=== PATIENT | female | born 1935 | race Caucasian/White ===

== ENCOUNTER 2018-08-09 14:47 | Emergency (ER) | payer MEDICARE, MEDICAID ==
[~2018-08-09] VITALS: Ht 163.8 cm; Wt 79.6 kg
[~2018-08-09 14:47] MED LIST: LEVO175T2 PO; LISI10TA4 PO
[2018-08-09 19:04] LABS: BASOPHILS % (AUTO) 0.3 % (0-1); EOSINOPHILS # (AUTO) 0.1 X10'3 (0-0.9); EOSINOPHILS % (AUTO) 1.5 % (0-6); HEMATOCRIT 38.2 % (35.0-45.0); HEMOGLOBIN 12.7 g/dl (12.0-16.0); LYMPHOCYTES # (AUTO) 3.4 X10'3 (1.1-4.8); LYMPHOCYTES % (AUTO) 37.8 % (21-51); MEAN CORPUSCULAR HEMOGLOBIN 27.1 PG (27.0-31.0); MEAN CORPUSCULAR HGB CONC 33.2 % (33.0-36.5); MEAN CORPUSCULAR VOLUME 81.6 FL (78-98); MEAN PLATELET VOLUME 7.6 FL (7.4-10.4); MONOCYTES # (AUTO) 0.6 X10'3 (0-0.9); MONOCYTES % (AUTO) 6.7 % (2-12); NEUTROPHILS # (AUTO) 4.8 X10'3 (1.8-7.7); NEUTROPHILS % (AUTO) 53.7 % (42-75); PLATELET COUNT 305 X10'3 (140-440); RED BLOOD COUNT 4.68 X10'6 (4.20-5.60); RED CELL DISTRIBUTION WIDTH 14.4 % (11.5-14.5)
[2018-08-09 19:16] LABS: CLARITY,URINE CLEAR (Clear); COLOR,URINE STRAW (Yellow); GLUCOSE, URINE NEGATIVE (Neg); KETONES,URINE NEGATIVE (Neg); LEUKOCYTE ESTERASE ,URINE NEGATIVE (Neg); NITRITES, URINE NEGATIVE (Neg); OCCULT BLOOD,URINE NEGATIVE (Neg); PROTEIN,URINE TRACE mg/dl (Neg); UROBILINOGEN,URINE 0.2 E.U/dL (0.2-1.0)
[2018-08-09 19:20] LABS: ALANINE AMINOTRANSFERASE 19 U/L (12-78); ALBUMIN 3.4 G/DL (3.4-5.0); ALBUMIN/GLOBULIN RATIO 0.9 (1.1-1.5); ALKALINE PHOSPHATASE 116 IU/L (46-116); ANION GAP 10 (8-16); ASPARTATE AMINO TRANSFERASE 17 U/L (10-37); BILIRUBIN,TOTAL 0.3 MG/DL (0.1-1.0); BLOOD UREA NITROGEN 12 MG/DL (7-18); BUN/CREATININE RATIO 12.6 (6.6-38.0); CALCIUM 8.8 MG/DL (8.5-10.1); CHLORIDE 99 MMOL/L (99-107); CREATININE 0.95 MG/DL (0.40-0.90); GLUCOSE 106 MG/DL (70-104); PARTIAL THROMBOPLASTIN TIME 30 SECONDS (22-32); POTASSIUM 3.6 MMOL/L (3.5-5.1); PROTHROMBIN TIME 9.7 SECONDS (9.0-12.0); SODIUM 136 MMOL/L (135-145); TOTAL CARBON DIOXIDE 26.9 MMOL/L (24-32); TOTAL PROTEIN 7.3 G/DL (6.4-8.2); eGFR 57 ML/MIN
[2018-08-09 19:33] VITALS: BP 176/96
[2018-08-09 19:33] LABS: UA COLLECTION TYPE CLN CATCH MIDSTREAM
[2018-08-09 19:34] LABS: BACTERIA,URINE NONE SEEN /HPF (Neg); RBC,URINE 0-2 /HPF (0-2); SQUAMOUS EPITHELIAL CELL,UR FEW /LPF (FEW); WBC,URINE NONE SEEN /HPF (0-4)
== END 2018-08-09 22:46 | disposition home or self-care (01) ==
LOC: ER 14:47
DX: I10 Essential (primary) hypertension (principal); R07.89 Other chest pain; E03.9 Hypothyroidism, unspecified; Z90.49 Acquired absence of other specified parts of digestive tract; Z79.899 Other long term (current) drug therapy; Z60.2 Problems related to living alone
CPT/HCPCS: 36415; 71045; 80053; 81001; 84484; 85025; 85610; 85730; 93005; 99284

== ENCOUNTER 2019-05-16 10:43 | Emergency (ER) | payer MEDICARE, MEDICAID ==
[~2019-05-16] VITALS: Ht 166.4 cm; Wt 81.8 kg
--- NOTE | 2019-05-16 11:17 | NUR ---
Patient resting in bed comfortable. Talking with sister who is at bedside.
[2019-05-16 11:27] LABS: BASOPHILS # (AUTO) 0.1 X10'3 (0-0.2); BASOPHILS % (AUTO) 0.8 % (0-1); EOSINOPHILS # (AUTO) 0.1 X10'3 (0-0.9); EOSINOPHILS % (AUTO) 0.9 % (0-6); HEMATOCRIT 35.2 % (35.0-45.0); LYMPHOCYTES # (AUTO) 2.5 X10'3 (1.1-4.8); MEAN CORPUSCULAR HEMOGLOBIN 27.5 PG (27.0-31.0); MEAN CORPUSCULAR HGB CONC 34.2 g/dL (33.0-36.5); MEAN CORPUSCULAR VOLUME 80.3 FL (78-98); MEAN PLATELET VOLUME 7.1 FL (7.4-10.4); MONOCYTES # (AUTO) 0.5 X10'3 (0-0.9); MONOCYTES % (AUTO) 7.7 % (2-12); NEUTROPHILS # (AUTO) 3.3 X10'3 (1.8-7.7); NEUTROPHILS % (AUTO) 51.6 % (42-75); PLATELET COUNT 247 X10'3 (140-440); RED BLOOD COUNT 4.39 X10'6 (4.20-5.60); RED CELL DISTRIBUTION WIDTH 14.4 % (11.5-14.5); WHITE BLOOD COUNT 6.5 X10'3 (4.5-11.0)
[2019-05-16 11:50] LABS: CLARITY,URINE CLEAR (Clear); COLOR,URINE STRAW (Yellow); GLUCOSE, URINE NEGATIVE (Neg); KETONES,URINE NEGATIVE (Neg); LEUKOCYTE ESTERASE ,URINE MODERATE (Neg); NITRITES, URINE NEGATIVE (Neg); OCCULT BLOOD,URINE NEGATIVE (Neg); PROTEIN,URINE NEGATIVE (Neg); UROBILINOGEN,URINE 0.2 E.U/dL (0.2-1.0)
[2019-05-16 11:53] LABS: ALANINE AMINOTRANSFERASE 18 U/L (12-78); ALBUMIN 3.3 G/DL (3.4-5.0); ALBUMIN/GLOBULIN RATIO 0.9 (1.1-1.5); ALKALINE PHOSPHATASE 84 IU/L (46-116); ANION GAP 8 (8-16); ASPARTATE AMINO TRANSFERASE 18 U/L (10-37); BILIRUBIN,TOTAL 0.5 MG/DL (0.1-1.0); BLOOD UREA NITROGEN 8 MG/DL (7-18); BUN/CREATININE RATIO 9.2 (6.6-38.0); CALCIUM 7.8 MG/DL (8.5-10.1); CHLORIDE 100 MMOL/L (99-107); CREATININE 0.87 MG/DL (0.40-0.90); GLUCOSE 116 MG/DL (70-104); LIPASE 127 U/L (73-393); POTASSIUM 3.4 MMOL/L (3.5-5.1); SODIUM 134 MMOL/L (135-145); TOTAL CARBON DIOXIDE 25.8 MMOL/L (24-32); TOTAL PROTEIN 6.9 G/DL (6.4-8.2); eGFR 62 ML/MIN
[2019-05-16 11:57] LABS: UA COLLECTION TYPE CLN CATCH MIDSTREAM
[2019-05-16 11:59] LABS: BACTERIA,URINE 1+ /HPF (Neg); MUCUS STRANDS NONE SEEN /LPF (Neg); RBC,URINE 0-2 /HPF (0-2); SQUAMOUS EPITHELIAL CELL,UR FEW /LPF (FEW)
[2019-05-16] MEDS ORDERED: GABA-530 PO (12:43)
[2019-05-16 12:56] VITALS: BP 170/79
== END 2019-05-16 12:57 | disposition home or self-care (01) ==
LOC: ER 10:44
DX: R10.11 Right upper quadrant pain (principal); I10 Essential (primary) hypertension; E03.9 Hypothyroidism, unspecified; Z90.49 Acquired absence of other specified parts of digestive tract; Z79.899 Other long term (current) drug therapy
CPT/HCPCS: 36415; 74176; 80053; 81001; 83690; 85025; 85610; 87088; 99284

== ENCOUNTER 2019-05-24 09:27 | Emergency (ER) | payer MEDICARE, MEDICAID ==
[~2019-05-24] VITALS: Ht 162.6 cm; Wt 63.6 kg
[~2019-05-24 09:27] MED LIST changes: +GABA-530 PO
[2019-05-24 10:24] LABS: ALANINE AMINOTRANSFERASE 19 U/L (12-78); ALBUMIN 3.6 G/DL (3.4-5.0); ALBUMIN/GLOBULIN RATIO 0.9 (1.1-1.5); ALKALINE PHOSPHATASE 95 IU/L (46-116); ANION GAP 9 (8-16); ASPARTATE AMINO TRANSFERASE 17 U/L (10-37); BILIRUBIN,TOTAL 0.6 MG/DL (0.1-1.0); BLOOD UREA NITROGEN 12 MG/DL (7-18); BUN/CREATININE RATIO 14.5 (6.6-38.0); CALCIUM 8.4 MG/DL (8.5-10.1); CHLORIDE 100 MMOL/L (99-107); CREATININE 0.83 MG/DL (0.40-0.90); GLUCOSE 105 MG/DL (70-104); LIPASE 137 U/L (73-393); POTASSIUM 3.2 MMOL/L (3.5-5.1); SODIUM 136 MMOL/L (135-145); TOTAL PROTEIN 7.8 G/DL (6.4-8.2); eGFR 66 ML/MIN
[2019-05-24] MEDS ORDERED: potassium Cl 20 mEq SR tablet PO STA (10:34)
[2019-05-24 10:37] LABS: BASOPHILS % (AUTO) 0.4 % (0-1); EOSINOPHILS # (AUTO) 0.1 X10'3 (0-0.9); EOSINOPHILS % (AUTO) 0.8 % (0-6); HEMATOCRIT 39.7 % (35.0-45.0); HEMOGLOBIN 13.2 g/dl (12.0-16.0); LYMPHOCYTES % (AUTO) 23.9 % (21-51); MEAN CORPUSCULAR HEMOGLOBIN 27.4 PG (27.0-31.0); MEAN CORPUSCULAR HGB CONC 33.3 g/dL (33.0-36.5); MEAN CORPUSCULAR VOLUME 82.4 FL (78-98); MEAN PLATELET VOLUME 7.4 FL (7.4-10.4); MONOCYTES # (AUTO) 0.5 X10'3 (0-0.9); MONOCYTES % (AUTO) 5.9 % (2-12); NEUTROPHILS # (AUTO) 5.9 X10'3 (1.8-7.7); PLATELET COUNT 291 X10'3 (140-440); RED BLOOD COUNT 4.82 X10'6 (4.20-5.60); RED CELL DISTRIBUTION WIDTH 14.3 % (11.5-14.5); WHITE BLOOD COUNT 8.5 X10'3 (4.5-11.0)
[2019-05-24 11:23] LABS: CLARITY,URINE CLEAR (Clear); COLOR,URINE STRAW (Yellow); GLUCOSE, URINE NEGATIVE (Neg); KETONES,URINE 15 mg/dl (Neg); LEUKOCYTE ESTERASE ,URINE NEGATIVE (Neg); NITRITES, URINE NEGATIVE (Neg); OCCULT BLOOD,URINE NEGATIVE (Neg); PROTEIN,URINE NEGATIVE (Neg); UROBILINOGEN,URINE 0.2 E.U/dL (0.2-1.0)
[2019-05-24 11:29] LABS: UA COLLECTION TYPE OTHER
[2019-05-24 11:49] VITALS: BP 172/80
== END 2019-05-24 11:55 | disposition home or self-care (01) ==
LOC: ER 09:28
DX: R10.9 Unspecified abdominal pain (principal); R07.81 Pleurodynia; R42 Dizziness and giddiness; I10 Essential (primary) hypertension; E03.9 Hypothyroidism, unspecified; Z79.899 Other long term (current) drug therapy; Z86.79 Personal history of other diseases of the circulatory system; Z90.49 Acquired absence of other specified parts of digestive tract; Z60.2 Problems related to living alone
CPT/HCPCS: 36415; 80053; 81003; 83690; 85025; 99283

== ENCOUNTER 2020-05-04 09:43 | Emergency (ER) | payer MEDICARE, MEDICAID ==
[~2020-05-04] VITALS: Ht 165.1 cm; Wt 78.0 kg
--- NOTE | 2020-05-04 09:58 | NUR ---
EKG 2786
[2020-05-04] MEDS ORDERED: nitroGLYCERIN 1gm ointment UD TP ONE (10:05)
[2020-05-04 10:47] LABS: BASOPHILS % (AUTO) 0.5 % (0-1); EOSINOPHILS # (AUTO) 0.1 X10'3 (0-0.9); EOSINOPHILS % (AUTO) 0.9 % (0-6); HEMATOCRIT 37.5 % (35.0-45.0); HEMOGLOBIN 12.5 g/dl (12.0-16.0); LYMPHOCYTES # (AUTO) 3.3 X10'3 (1.1-4.8); LYMPHOCYTES % (AUTO) 39.8 % (21-51); MEAN CORPUSCULAR HEMOGLOBIN 27.6 PG (27.0-31.0); MEAN CORPUSCULAR HGB CONC 33.4 g/dL (33.0-36.5); MEAN CORPUSCULAR VOLUME 82.7 FL (78-98); MEAN PLATELET VOLUME 7.3 FL (7.4-10.4); MONOCYTES # (AUTO) 0.6 X10'3 (0-0.9); MONOCYTES % (AUTO) 7.3 % (2-12); NEUTROPHILS # (AUTO) 4.3 X10'3 (1.8-7.7); NEUTROPHILS % (AUTO) 51.5 % (42-75); PLATELET COUNT 294 X10'3 (140-440); RED BLOOD COUNT 4.53 X10'6 (4.20-5.60); RED CELL DISTRIBUTION WIDTH 14.2 % (11.5-14.5); WHITE BLOOD COUNT 8.3 X10'3 (4.5-11.0)
[2020-05-04 10:54] LABS: ALANINE AMINOTRANSFERASE 17 U/L (12-78); ALBUMIN 3.3 G/DL (3.4-5.0); ALBUMIN/GLOBULIN RATIO 0.8 (1.1-1.5); ALKALINE PHOSPHATASE 85 IU/L (46-116); ANION GAP 7 (8-16); ASPARTATE AMINO TRANSFERASE 20 U/L (10-37); BILIRUBIN,TOTAL 0.5 MG/DL (0.1-1.0); BLOOD UREA NITROGEN 13 MG/DL (7-18); BUN/CREATININE RATIO 13.8 (6.6-38.0); CALCIUM 8.9 MG/DL (8.5-10.1); CHLORIDE 100 MMOL/L (99-107); CREATININE 0.94 MG/DL (0.40-0.90); GLUCOSE 114 MG/DL (70-104); POTASSIUM 3.6 MMOL/L (3.5-5.1); SODIUM 135 MMOL/L (135-145); TOTAL CARBON DIOXIDE 28.4 MMOL/L (24-32); TOTAL PROTEIN 7.2 G/DL (6.4-8.2); eGFR 57 ML/MIN
[2020-05-04] MEDS ORDERED: lisinopril 10 MG tablet PO ONE ×2 (11:10→11:15)
[2020-05-04] MEDS ORDERED: LISI-600 PO (11:18)
--- NOTE | 2020-05-04 11:24 | NUR ---
Vanessa ([phone]) updated on pt status including likelihood of dc in next 30 minutes.
[2020-05-04 11:53] LABS: CHOL/HDL RATIO 4.4 (0.00-4.99); CHOLESTEROL 205 MG/DL (0-200); HDL CHOLESTEROL 47 MG/DL (35-60); LDL CHOLESTEROL 114 MG/DL (50-100); TRIGLYCERIDES 199 MG/DL (20-135)
[2020-05-04 11:56] VITALS: BP 162/83
== END 2020-05-04 11:57 | disposition home or self-care (01) ==
LOC: ER 09:43
DX: I10 Essential (primary) hypertension (principal); E03.9 Hypothyroidism, unspecified; Z91.19 Patient's noncompliance with other medical treatment and regimen; Z90.49 Acquired absence of other specified parts of digestive tract; Z88.8 Allergy status to other drugs, medicaments and biological substances; Z79.899 Other long term (current) drug therapy
CPT/HCPCS: 36415; 71045; 80053; 80061; 83880; 84443; 84484; 85025; 93005; 99285

== ENCOUNTER 2020-12-07 10:28 | Emergency (ER) | payer MEDICARE, MEDICAID ==
[~2020-12-07] VITALS: Ht 162.6 cm; Wt 81.8 kg
[~2020-12-07 10:28] MED LIST changes: +LISI10TA27 PO; -LISI10TA4 PO
[2020-12-07 11:40] LABS: BASOPHILS % (AUTO) 0.4 % (0-1); EOSINOPHILS # (AUTO) 0.1 X10'3 (0-0.9); EOSINOPHILS % (AUTO) 0.8 % (0-6); HEMATOCRIT 37.6 % (35.0-45.0); HEMOGLOBIN 12.7 g/dl (12.0-16.0); LYMPHOCYTES # (AUTO) 3.9 X10'3 (1.1-4.8); LYMPHOCYTES % (AUTO) 41.1 % (21-51); MEAN CORPUSCULAR HEMOGLOBIN 28.1 PG (27.0-31.0); MEAN CORPUSCULAR HGB CONC 33.7 g/dL (33.0-36.5); MEAN CORPUSCULAR VOLUME 83.2 FL (78-98); MEAN PLATELET VOLUME 7.1 FL (7.4-10.4); MONOCYTES # (AUTO) 0.7 X10'3 (0-0.9); MONOCYTES % (AUTO) 7.1 % (2-12); NEUTROPHILS # (AUTO) 4.8 X10'3 (1.8-7.7); NEUTROPHILS % (AUTO) 50.6 % (42-75); PLATELET COUNT 323 X10'3 (140-440); RED BLOOD COUNT 4.52 X10'6 (4.20-5.60); RED CELL DISTRIBUTION WIDTH 14.5 % (11.5-14.5); WHITE BLOOD COUNT 9.4 X10'3 (4.5-11.0)
[2020-12-07 11:55] LABS: ALANINE AMINOTRANSFERASE 13 U/L (12-78); ALBUMIN 3.4 G/DL (3.4-5.0); ALBUMIN/GLOBULIN RATIO 0.8 (1.1-1.5); ALKALINE PHOSPHATASE 110 IU/L (46-116); ASPARTATE AMINO TRANSFERASE 14 U/L (10-37); BILIRUBIN,TOTAL 0.3 MG/DL (0.1-1.0); BLOOD UREA NITROGEN 12 MG/DL (7-18); BUN/CREATININE RATIO 12.8 (6.6-38.0); CREATININE 0.94 MG/DL (0.40-0.90); GLUCOSE 95 MG/DL (70-104); POTASSIUM 3.5 MMOL/L (3.5-5.1); SODIUM 136 MMOL/L (135-145); TOTAL CARBON DIOXIDE 28.2 MMOL/L (24-32); TOTAL PROTEIN 7.7 G/DL (6.4-8.2); eGFR 57 ML/MIN
[2020-12-07 12:01] LABS: ANION GAP 8 (8-16); CHLORIDE 100 MMOL/L (99-107)
--- NOTE | 2020-12-07 12:04 | NUR ---
some lab results still pending,patient made aware,given a call light and a blanket.
[2020-12-07 12:43] VITALS: BP 179/101
== END 2020-12-07 12:44 | disposition home or self-care (01) ==
LOC: ER 10:29
DX: R00.2 Palpitations (principal); R06.02 Shortness of breath; I10 Essential (primary) hypertension; E03.9 Hypothyroidism, unspecified; Z90.89 Acquired absence of other organs; Z90.49 Acquired absence of other specified parts of digestive tract; Z60.2 Problems related to living alone; Z88.8 Allergy status to other drugs, medicaments and biological substances; Z79.899 Other long term (current) drug therapy
CPT/HCPCS: 36415; 71045; 80053; 83880; 84484; 85025; 93005; 99285

== ENCOUNTER 2021-12-30 14:38 | Emergency (ER) | payer MEDICARE, MEDICAID ==
[~2021-12-30] VITALS: Ht 162.6 cm; Wt 81.8 kg
[2021-12-30 14:56] VITALS: BP 196/93
--- NOTE | 2021-12-30 18:16 | NUR ---
SLING APPLIED TO RT ARM. POST SLSING CSM INTACT
== END 2021-12-30 18:18 | disposition home or self-care (01) ==
LOC: ER 14:38
DX: S79.911A Unspecified injury of right hip, initial encounter (principal); M25.551 Pain in right hip; I10 Essential (primary) hypertension; E03.9 Hypothyroidism, unspecified; Z90.89 Acquired absence of other organs; Z90.49 Acquired absence of other specified parts of digestive tract; Z60.2 Problems related to living alone; Z88.8 Allergy status to other drugs, medicaments and biological substances; Z79.899 Other long term (current) drug therapy; W19.XXXA Unspecified fall, initial encounter; Y93.89 Activity, other specified; Y92.89 Other specified places as the place of occurrence of the external cause; Y99.8 Other external cause status
CPT/HCPCS: 73080; 73502; 99284

== ENCOUNTER 2025-06-02 08:49 | Emergency (ER) | payer MEDICARE, MEDICAID ==
[~2025-06-02] VITALS: Ht 165.1 cm; Wt 77.2 kg
[~2025-06-02 08:49] MED LIST changes: +FELO2.5T25 PO; -GABA-530 PO; -LEVO175T2 PO; +LEVO75TA7 PO; -LISI10TA27 PO; +LOSA100T58 PO
[2025-06-02 08:57] VITALS: TEMP 97.4
--- NOTE | 2025-06-02 09:46 | Physician Documentation ---
History of Present Illness ~ Chief Complaint: Constipation Stated Complaint: ABD PAIN Time Seen by MD: 09:14 OK to notify your PCP?: Yes Primary Medical Doctor: mick Source: patient, family Mode of Arrival: POV Exam Limitations: no limitations HPI 89-year-old female presenting for right upper quadrant severe abdominal pain 4 days. She reports her pain is 8/10 in his a burning sharp sensation. She reports that she has not had a bowel movement in the past 4 days either. She does not have any lower abdominal pain at this time. She denies any nausea or vomiting. She has had decreased appetite but has been eating small snacks since this started. She has had her gallbladder and appendix removed already. She has been able to pass gas twice in the past 4 days. Not taken any medication for her pain prior to arrival. Medication Reconciliation Allergies: Coded Allergies: atorvastatin (Unverified Allergy, Intermediate, 06/02/25) Scheduled Felodipine (Felodipine ER), 1 TAB PO QPM, (Reported) Levothyroxine Sodium (Levothyroxine Sodium), 1 TAB PO DAILY@0730, (Reported) Losartan Potassium (Losartan Potassium), 1 TAB PO DAILY, (Reported) Polyethylene Glycol 3350* (Miralax*), 1 PKT PO DAILY Past Medical History Past Medical History: Arrhythmia, Hypertension, Hypothyroidism Past Surgical History: appendectomy, cholecystectomy Alcohol Use: None Drug Use: none Lives with: Alone Lives In: Home Occupation: retired Review of Systems All Other Systems at this time: Reviewed and Negative Physical Exam Vital Signs: RN Vital Signs have been reviewed: Yes, Temperature: 97.4, Source: Temporal, Heart Rate: 62, Respiratory Rate: 16, BP: 163/82, Pulse Oximetry: 97, Weight: 77.200 Pulse Oximetry Reflects: adequate oxygenation Physical Exam General: Alert, no apparent distress. Uses a front wheel walker. HEENT: PERRL, EOMI, no injection, moist mucous membranes. Neck: Full range of motion. Respiratory: Lungs clear, no respiratory distress. Chest: No accessory muscle use. Cardiovascular: Regular rate and rhythm, no murmurs. Gastrointestinal: Soft, nondistended. Bowels sounds present. Right upper quadrant and epigastric pain on palpation. Extremities: Normal range of motion, no deformity. Neurologic: Oriented x4. Psychiatric: Normal mood and affect. Skin: Normal color, warm and dry. No edema, no ecchymosis. Progress Results/Orders Reviewed/noted all lab results: Yes Results/Orders Orders - CATIA GUTIERREZ LINOLEUM TILE FLOOR LAYER Saline Lock (06/02/25 ) Ct Abdomen Pelvis (06/02/25 09:40) Completed Orders - CATIA GUTIERREZ LINOLEUM TILE FLOOR LAYER Normal Saline 1000ml (0.9% Sodium Chlori (06/02/25 09:40) Ondansetron Inj. (Zofran 4mg/2ml Vial) (06/02/25 09:40) Morphine 4mg/Ml Inj. (Morphine Inj.) (06/02/25 09:40) Ct Abdomen Pelvis (06/02/25 09:40) Urinalysis, Cult If Indicated (06/02/25 09:40) Cbc/Diff (06/02/25 09:40) BMP (06/02/25 09:40) Lipase (06/02/25 09:40) CMP (06/02/25 09:40) Iohexol 300mg/Ml 100ml Inj. (Omnipaque-3 (06/02/25 10:13) Potassium Cl Sr Tablet (K-Dur Tablet) (06/02/25 10:47) Medications Received in ER Medications (Trade) Dose Ordered Sig/Anita Route PRN Reason Start Time Stop Time Status Last Admin Dose Admin (0.9% sodium chloride (NS) 1000ml IV soln) 500 ml ONCE ONCE IVB 06/02/25 09:40 06/02/25 09:45 DC 06/02/25 10:04 500 ML (Zofran 4mg/2ml vial) 4 mg ONCE ONCE IV 06/02/25 09:40 06/02/25 09:45 DC 06/02/25 10:13 4 MG (morphine inj.) 4 mg ONCE ONCE IV 06/02/25 09:40 06/02/25 09:45 DC 06/02/25 10:13 4 MG (K-DUR tablet) 20 meq ONCE STAT PO 06/02/25 10:47 06/02/25 10:50 DC 06/02/25 11:00 20 MEQ Vital Signs 06/02/25 06/02/25 06/02/25 06/02/25 08:57 09:55 10:13 12:28 Temp 97.4 Pulse 62 57 Resp 16 15 15 15 B/P (MAP) 163/82 168/74 (105) Pulse Ox 97 98 06/02/25 12:30 Resp 15 B/P (MAP) 134/82 Pulse Ox 94 Laboratory Tests Test 06/02/25 09:47 06/02/25 11:07 White Blood Count 7.2 Red Blood Count 4.61 Hemoglobin 12.8 Hematocrit 38.0 Mean Corpuscular Volume 82.4 Mean Corpuscular Hemoglobin 27.7 Mean Corpuscular Hemoglobin Concent 33.6 Red Cell Distribution Width 14.4 Platelet Count 386 Mean Platelet Volume 6.8 L Neutrophils (%) (Auto) 58.5 Lymphocytes (%) (Auto) 32.3 Monocytes (%) (Auto) 8.0 Eosinophils (%) (Auto) 0.3 Basophils (%) (Auto) 0.9 Neutrophils # (Auto) 4.2 Lymphocytes # (Auto) 2.3 Monocytes # (Auto) 0.6 Eosinophils # (Auto) 0.0 Basophils # (Auto) 0.1 CBC Comment Sodium Level 127 L Potassium Level 3.1 L Chloride Level 92 L Carbon Dioxide Level 28.8 Anion Gap 6 L Blood Urea Nitrogen 10 Creatinine 0.96 H Estimated GFR/1.73 m2 55 BUN/Creatinine Ratio 10.4 Glucose Level 125 H Calcium Level 9.4 Total Bilirubin 0.7 Aspartate Amino Transf (AST/SGOT) 20 Alanine Aminotransferase (ALT/SGPT) 14 Alkaline Phosphatase 100 Total Protein 7.9 Albumin 3.7 Globulin 4.2 Albumin/Globulin Ratio 0.9 L Lipase 28 Chemistry Comments Urine Specimen Description Urinal Urine Color Yellow Urine Clarity Clear Urine pH 6.0 Urine Specific [place] <=1.005 Urine Protein Negative Urine Glucose (UA) Negative Urine Ketones Negative Urine Occult Blood Negative Urine Nitrite Negative Urine Bilirubin Negative Urine Urobilinogen 0.2 Urine Leukocyte Esterase Negative Urine Culture Indicated Not ind Volume Urine Centrifuged 10 ml Urine Comment EKG/XRAY/CT/US/VASC/MRI CT : Impression Abdominal pelvic CT with contrast as interpreted by me: no free air, no bowel obstruction, no focal lesions of liver. Medical Decision Making Additional information obtaine: old records, family Findings She is having right upper quadrant pain for the past 4 days along with constipation. She denies any lower abdominal pain. Physical exam shows right upper quadrant tenderness and epigastric region to palpation. Otherwise normal exam. She does not have a gallbladder as it was surgically removed. She also does not have appendix as it was surgically removed. Her labs are unremarkable except for a potassium of 3.1 for which I replaced with 20 mEq potassium orally. Her sodium is 127 and her daughter reports that she has been on a very low salt diet due to her blood pressure. She was given a 500 mL bolus of normal saline due to IV contrast of her CT. CT shows a left adrenal nodule, left adnexal lesion, colonic diverticulosis and mild intrahepatic biliary duct dilation due to cholecystectomy. There are no acute abdominal or pelvic findings on her scan. She was given morphine for pain and Zofran to prevent nausea. The morphine decreased her pain from an 8/10 to a 0/10. I was concerned for a small bowel obstruction although the CT does not indicate any bowel obstruction. I prescribed MiraLax to her pharmacy to help her have a bowel movement. She is given strict return instructions as well as follow up instructions. There is a possibility of a mesenteric artery issue causing her pain. I discussed this case with Dr. Kohler who recommended admission for further workup such as a CTA. I discussed the findings and risk with discharge with the patient and offered her admission for further workup, she declines admission at this time and states I would rather go home". Daughter agrees to bring her back if she has any worsening. Diff Dx GI Bleed:Consideration: Include: Carcinoma, Diverticulosis Diff Dx Pain:Considerations: Include: AAA, Aortic dissection, Appendicitis, Bowel obstruction, Cholelithasis, Constipation, Diverticular disease, Esophagitis, Hernia, Hepatitis, Ischemic bowel, Mass, Pancreatitis, Urinary obstruction, Urolithiasis Diff Dx N/V/D:Considerations: Include: Dehydration, GI bleed, Pancreatitis Diff Dx Rectal:Considerations: Unlikely: Fissure, Fistula, Foreign body, Impaction, Perirectal abscess, Rectal prolapse, Subcutaneous abscess, Thrombosed hemorrhoid, Ulcer, UTI, Other Departure Disposition: HOME / SELF CARE / HOMELESS Impression: Primary Impression: Constipation Additional Impressions: Hyponatremia Hypokalemia Condition: Stable Discharge Instructions: Constipation, Adult Additional Instructions: Continue to follow up with her primary care provider on Thursday. Return back here for any new or worsening symptoms. Referrals: NO PRIMARY CARE PROVIDER (PCP) Prescriptions Polyethylene Glycol 3350* (Miralax*) 1 Packet Packet 1 PKT PO DAILY for constipation for 2 Days, #2 PKT dissolve in water Prov: CATIA GUTIERREZ 06/02/25 Education Educated: Patient, Family Educated regarding: diagnosis, treatment, prognosis, need for follow up Additional Comment Medical Screen Exam This patient recieved a medical screening examination. After reviewing the individual's medical complaints with presenting symptoms and performing an appropriate physical examination, it was determined that no immediate life- threatening emergency medical condition is present. This individual is also not a women having contractions. Signature Scribe Signature: . Attestation: Scribed for Catia Gutierrez by Catia Ronquillo NP . 06/02/25 15:58 Parts of this note were created using [employer] voice recognition software program. While efforts were made to correct any mistakes made by this voice recognition software program, nonsensical phrases may remain in this note. In addition, there may be errors and syntax, grammar, content and spelling. CATIA GUTIERREZ Jun 02, 2025 09:46
[2025-06-02 09:55] VITALS: PULSE 57
[2025-06-02 09:58] LABS: MEAN PLATELET VOLUME 6.8 FL (7.4-10.4); RED CELL DISTRIBUTION WIDTH 14.4 % (11.5-14.5)
[2025-06-02] MEDS: normal saline 1000ML IV soln IVB ONE (10:04)
[2025-06-02 10:11] LABS: CREATININE 0.96 MG/DL (0.40-0.90); TOTAL CARBON DIOXIDE 28.8 MMOL/L (24-32); eCRCL 37 ML/MIN; eGFR 55 ML/MIN
[2025-06-02] MEDS: ondansetron/PF 4mg/2ml inj IV ONE (10:13)
[2025-06-02] MEDS: morphine 4 MG/ML inj SYRINge IV ONE (10:13)
[2025-06-02] MEDS ORDERED: iohexol 300mg/ml 100ml inj. ONE (10:13)
[2025-06-02] MEDS: potassium Cl 20 mEq SR tablet PO STA (11:00)
--- NOTE | 2025-06-02 11:18 | RADIOLOGY REPORT ---
Exam: CT CT ABDOMEN PELVIS W/ IV CONTRAST History: Abdominal pain x4 days. Comparison Study: None Technique: Multidetector spiral CT of the abdomen was performed from lung bases to pubic symphysis. Axial imaging was performed with intravenous contrast following the uneventful administration of 100 ml Omnipaque 300. Coronal and sagittal multiplanar reformats were obtained from the axial data set by the technologist. Radiation Dose : 1. Abdomen/Pelvis: CTDIvol 26.5 mGy, DLP 1285.0 mGy*cm. Findings: Lung Bases: Lung bases are clear. Visualized portions of the heart and pericardium are unremarkable. Liver: The liver is normal in size. No focal lesions. Gallbladder and Biliary Tree: The gallbladder is absent. Mild intrahepatic biliary ductal dilatation. The common bile duct measures 0.8 cm. Spleen: Unremarkable Pancreas: The pancreas enhances normally and there are no focal lesions. The main pancreatic duct is not dilated Adrenal Glands: There is a hypoenhancing left adrenal nodule measuring 1.7 cm. The right adrenal is unremarkable. Kidneys: Kidneys enhance symmetrically. No calculi or hydronephrosis. There are multiple left renal cysts. Right renal low-density lesion measures 10 mm. GI tract: The stomach is grossly normal in appearance. No evidence of small bowel wall thickening or abnormal dilatation to suggest bowel obstruction. There is colonic diverticulosis without acute diverticulitis. No acute appendicitis. Peritoneum/mesentery/retroperitoneum. No evidence of free intraperitoneal air. No ascites. No evidence of suspicious lymphadenopathy. Abdominal Wall: Unremarkable. Vasculature: Abdominal aorta and main branches are unremarkable. Normal vascular enhancement. There are atherosclerotic calcifications in the aorta. Urinary Bladder: Grossly unremarkable for degree of distention. Pelvic Organs:There is a left adnexal lesion measuring 1.4 cm. The uterus is unremarkable. Musculoskeletal: No aggressive focal bony lesions, acute fractures or dislocation. S shaped scoliosis and degenerative changes. IMPRESSION: 1. No acute abdominal or pelvic findings. 2. Left adrenal nodule measuring 1.7 cm. Recommend further evaluation with adrenal protocol CT. 3. Left adnexal lesion measuring 1.4 cm. Recommend further evaluation with pelvic ultrasound. 4. Colonic diverticulosis without acute diverticulitis. 5. Mild intrahepatic biliary ductal dilatation can be seen post cholecystectomy.
[2025-06-02 11:33] LABS: LEUKOCYTE ESTERASE ,URINE NEGATIVE (Neg); NITRITES, URINE NEGATIVE (Neg); OCCULT BLOOD,URINE NEGATIVE (Neg)
[2025-06-02 11:40] LABS: UA COLLECTION TYPE URINAL
[2025-06-02] MEDS ORDERED: POLY17PO10 PO (12:16)
[2025-06-02 12:30] VITALS: BP 134/82; RESP 15; O2SAT 94
[2025-06-05] MEDS ORDERED: HYDR12.55 PO (10:23)
== END 2025-06-02 12:36 | disposition home or self-care (01) ==
LOC: ER 08:50
DX: K59.00 Constipation, unspecified (principal); E87.6 Hypokalemia; E87.1 Hypo-osmolality and hyponatremia; E03.9 Hypothyroidism, unspecified; I10 Essential (primary) hypertension; Z90.49 Acquired absence of other specified parts of digestive tract; Z88.8 Allergy status to other drugs, medicaments and biological substances; Z79.899 Other long term (current) drug therapy; Z60.2 Problems related to living alone
CPT/HCPCS: 36415; 74177; 80053; 81003; 83690; 85025; 96374; 96375; 99285; J2270; J2405; J7030; Q9967